=== PATIENT | female | born 1980 | race Native Hawaiian/Other Pacific Islander ===

== ENCOUNTER 2018-10-13 21:04 | Inpatient (IN) | payer OTHER ==
[~2018-10-13] VITALS: Ht 152.4 cm; Wt 70.7 kg
[2018-10-13] MEDS ORDERED: NO HOME MEDS (21:17)
[2018-10-13] MEDS ORDERED: nitroGLYCERIN-Tridil 50MG/D5W 250 ML IV PRN (22:05)
[2018-10-13] MEDS ORDERED: ondansetron/PF 4mg/2ml inj IV ONE (22:10)
[2018-10-13] MEDS: fentaNYL/PF 50MCG/1 ML 2ML syringe IV PRN ×2 (22:13→23:11)
[2018-10-13 22:25] LABS: BASOPHILS # (AUTO) 0.1 X10'3 (0-0.2); BASOPHILS % (AUTO) 0.6 % (0-1); EOSINOPHILS # (AUTO) 0.1 X10'3 (0-0.9); EOSINOPHILS % (AUTO) 0.5 % (0-6); HEMATOCRIT 37.2 % (35.0-45.0); HEMOGLOBIN 11.6 g/dl (12.0-16.0); LYMPHOCYTES # (AUTO) 1.9 X10'3 (1.1-4.8); LYMPHOCYTES % (AUTO) 11.6 % (21-51); MEAN CORPUSCULAR HEMOGLOBIN 20.5 PG (27.0-31.0); MEAN CORPUSCULAR HGB CONC 31.1 g/dL (33.0-36.5); MEAN CORPUSCULAR VOLUME 65.9 FL (78-98); MEAN PLATELET VOLUME 8.2 FL (7.4-10.4); MONOCYTES % (AUTO) 6.2 % (2-12); NEUTROPHILS # (AUTO) 13.5 X10'3 (1.8-7.7); NEUTROPHILS % (AUTO) 81.1 % (42-75); PLATELET COUNT 329 X10'3 (140-440); RED BLOOD COUNT 5.66 X10'6 (4.20-5.60); RED CELL DISTRIBUTION WIDTH 23.7 % (11.5-14.5); WHITE BLOOD COUNT 16.7 X10'3 (4.5-11.0)
[2018-10-13 22:36] LABS: ALANINE AMINOTRANSFERASE 22 U/L (12-78); ALBUMIN 3.6 G/DL (3.4-5.0); ALBUMIN/GLOBULIN RATIO 0.8 (1.1-1.5); ALKALINE PHOSPHATASE 130 IU/L (46-116); ANION GAP 9 (8-16); ASPARTATE AMINO TRANSFERASE 17 U/L (10-37); BILIRUBIN,TOTAL 0.5 MG/DL (0.1-1.0); BLOOD UREA NITROGEN 20 MG/DL (7-18); CALCIUM 8.3 MG/DL (8.5-10.1); CHLORIDE 103 MMOL/L (99-107); CREATININE 0.91 MG/DL (0.40-0.90); GLUCOSE 142 MG/DL (70-104); POTASSIUM 3.4 MMOL/L (3.5-5.1); SODIUM 139 MMOL/L (135-145); eGFR 69 ML/MIN
[2018-10-13 22:41] LABS: PARTIAL THROMBOPLASTIN TIME 25 SECONDS (22-32)
[2018-10-13 23:14] LABS: ANISOCYTOSIS 3+; MICROCYTOSIS 2+; PLATELET ESTIMATE NORMAL
[2018-10-14] VITALS (21 sets, daily range): BP systolic 131–210; BP diastolic 66–105
--- NOTE | 2018-10-14 | NUR ---
ASKED DR ESPINAL FOR ATIVAN, HE DENIED.
[2018-10-14] MEDS: fentaNYL/PF 50MCG/1 ML 2ML syringe IV PRN ×4 (00:07→03:10)
--- NOTE | 2018-10-14 00:10 | NUR ---
PT VERY UNCOMFORTABLE. STATES HER STOMACH AND BACK AND HER CHEST HURT. DR ESPINAL HAS BEEN NOTIFIED.
--- NOTE | 2018-10-14 00:11 | NUR ---
ASKED DR ESPINAL FOR AN ARTERIAL LINE, SET UP IN THE ROOM.
--- NOTE | 2018-10-14 00:13 | NUR ---
DR ESPINAL NOTIFIED OF THE BLOOD PRESSURE AND THE PAIN THE PATIENT HAS IN HER BACK, ABDOMEN AND CHEST. HE SAID HE WILL BE IN IN A BIT, HE SAYS HER BP IS BETTER. HE DENIES ANY OTHER MEDICATION ADMINISTRATION AT THIS TIME.
--- NOTE | 2018-10-14 00:15 | NUR ---
PT FINALLY ASLEEP
[2018-10-14] MEDS ORDERED: labetalol inj. 200 MG in normal saline 250ml IV soln 210 ML IV SCH (02:20)
--- NOTE | 2018-10-14 02:22 | NUR ---
DARIEL HURST AT BEDSIDE, LOOKED AT NITRO DRIP DARIEL STATED " NEVER WORKS FOR B/P." DARIEL VERBALIZED HE WILL PUT ORDERS IN FOR B/P MEDICINE.
[2018-10-14] MEDS: K, MAG and/or Phos replacement - Verify level? MC SCH ×2 (02:25→07:12)
[2018-10-14] MEDS ORDERED: potassium Cl 40MEQ/NS 500ml 500 ML IV PRN ×2 (02:25)
[2018-10-14] MEDS ORDERED: potassium Cl 20 mEq SR tablet PO PRN (02:25)
[2018-10-14] MEDS ORDERED: ondansetron/PF 4mg/2ml inj IV PRN (02:25)
[2018-10-14] MEDS ORDERED: magnesium hydroxide 30ml (MOM) UD suspension PO PRN (02:25)
[2018-10-14] MEDS: normal saline 1000ml 1,000 ML IV SCH ×2 (02:30→22:23)
[2018-10-14] MEDS: LABETALOL IV SCH ×11 (02:45→20:40)
[2018-10-14] MEDS: NORMAL SALINE IV SCH ×11 (02:45→20:40)
--- NOTE | 2018-10-14 03:30 | NUR ---
I have received report and assumed care of pt, pt transferred [facility] emergency department via [facility] to room 2011, pt is moaning and thrashing in bed, assessment complete, pt placed on labetalol drip per md orders, protocol followed.
[2018-10-14] MEDS: morphine 4 MG/ML inj SYRINge IV PRN ×3 (03:37→22:09)
[2018-10-14] MEDS ORDERED: nitroGLYCERIN 1gm ointment UD TP ONE (04:00)
[2018-10-14] MEDS: morphine 2 MG/ML inj. syringe IV PRN ×2 (05:03→09:03)
--- NOTE | 2018-10-14 05:29 | NUR ---
0430 spoke to Grace davis N.PEdna regarding blood pressure parameters and IV fluid. new orders received.
--- NOTE | 2018-10-14 06:12 | NUR ---
report given to rec rn plan of care reviewed
[2018-10-14] MEDS: amLODIPine 5mg tablet PO SCH (07:19)
[2018-10-14] MEDS: metoprolol tartrate 50mg tablet PO SCH ×2 (07:19→20:40)
[2018-10-14] MEDS: losartan 50mg tablet PO SCH (07:19)
[2018-10-14] MEDS: pantoprazole 40mg Tablet.DR PO SCH (07:19)
[2018-10-14 07:59] LABS: BASOPHILS # (AUTO) 0.1 X10'3 (0-0.2); BASOPHILS % (AUTO) 0.6 % (0-1); EOSINOPHILS % (AUTO) 0 % (0-6); HEMATOCRIT 31.6 % (35.0-45.0); HEMOGLOBIN 9.7 g/dl (12.0-16.0); LYMPHOCYTES # (AUTO) 1.2 X10'3 (1.1-4.8); LYMPHOCYTES % (AUTO) 7.3 % (21-51); MEAN CORPUSCULAR HGB CONC 30.7 g/dL (33.0-36.5); MEAN CORPUSCULAR VOLUME 65.2 FL (78-98); MEAN PLATELET VOLUME 8.3 FL (7.4-10.4); MONOCYTES # (AUTO) 1.2 X10'3 (0-0.9); MONOCYTES % (AUTO) 7.4 % (2-12); NEUTROPHILS # (AUTO) 14.1 X10'3 (1.8-7.7); NEUTROPHILS % (AUTO) 84.7 % (42-75); PLATELET COUNT 270 X10'3 (140-440); RED BLOOD COUNT 4.85 X10'6 (4.20-5.60); RED CELL DISTRIBUTION WIDTH 23.2 % (11.5-14.5); WHITE BLOOD COUNT 16.6 X10'3 (4.5-11.0)
[2018-10-14 08:11] LABS: ALANINE AMINOTRANSFERASE 17 U/L (12-78); ALBUMIN/GLOBULIN RATIO 0.8 (1.1-1.5); ALKALINE PHOSPHATASE 108 IU/L (46-116); ANION GAP 11 (8-16); ASPARTATE AMINO TRANSFERASE 13 U/L (10-37); BILIRUBIN,TOTAL 0.8 MG/DL (0.1-1.0); BLOOD UREA NITROGEN 19 MG/DL (7-18); BUN/CREATININE RATIO 21.8 (6.6-38.0); CALCIUM 8.5 MG/DL (8.5-10.1); CHLORIDE 103 MMOL/L (99-107); CREATININE 0.87 MG/DL (0.40-0.90); GLUCOSE 142 MG/DL (70-104); MAGNESIUM 1.6 MG/DL (1.5-2.4); PHOSPHORUS 3.4 MG/DL (2.3-4.5); POTASSIUM 3.4 MMOL/L (3.5-5.1); SODIUM 138 MMOL/L (135-145); TOTAL CARBON DIOXIDE 23.6 MMOL/L (24-32); eGFR 73 ML/MIN
[2018-10-14 10:15] LABS: PLATELET ESTIMATE NORMAL
[2018-10-14 10:16] LABS: ANISOCYTOSIS 3+; HYPOCHROMASIA 2+; MICROCYTOSIS 2+
[2018-10-14] MEDS: HYDROcodone/acetaminophen 10/325mg tab PO PRN ×2 (11:16→19:08)
--- NOTE | 2018-10-14 18:37 | NUR ---
Problems reprioritized. Patient report given, questions answered & plan of care reviewed with Mac RN.
[2018-10-14] MEDS: potassium Cl 20 mEq SR tablet PO PRN (20:40)
[2018-10-15] VITALS (24 sets, daily range): BP systolic 107–184; BP diastolic 53–104
[2018-10-15] MEDS: NORMAL SALINE IV SCH ×13 (00:25→16:18)
[2018-10-15] MEDS: LABETALOL IV SCH ×13 (00:25→16:18)
[2018-10-15] MEDS: HYDROcodone/acetaminophen 10/325mg tab PO PRN ×3 (00:28→16:30)
[2018-10-15] MEDS: morphine 4 MG/ML inj SYRINge IV PRN ×3 (02:46→18:50)
[2018-10-15 04:37] LABS: BASOPHILS % (AUTO) 0.3 % (0-1); EOSINOPHILS # (AUTO) 0.1 X10'3 (0-0.9); EOSINOPHILS % (AUTO) 0.4 % (0-6); HEMATOCRIT 28.5 % (35.0-45.0); HEMOGLOBIN 8.8 g/dl (12.0-16.0); LYMPHOCYTES # (AUTO) 1.1 X10'3 (1.1-4.8); LYMPHOCYTES % (AUTO) 8.3 % (21-51); MEAN CORPUSCULAR HEMOGLOBIN 20.4 PG (27.0-31.0); MEAN CORPUSCULAR HGB CONC 30.9 g/dL (33.0-36.5); MEAN CORPUSCULAR VOLUME 66.1 FL (78-98); MEAN PLATELET VOLUME 8.3 FL (7.4-10.4); MONOCYTES % (AUTO) 7.6 % (2-12); NEUTROPHILS # (AUTO) 10.9 X10'3 (1.8-7.7); NEUTROPHILS % (AUTO) 83.4 % (42-75); PLATELET COUNT 250 X10'3 (140-440); WHITE BLOOD COUNT 13.1 X10'3 (4.5-11.0)
[2018-10-15 04:52] LABS: ALANINE AMINOTRANSFERASE 18 U/L (12-78); ALBUMIN 2.7 G/DL (3.4-5.0); ALBUMIN/GLOBULIN RATIO 0.7 (1.1-1.5); ALKALINE PHOSPHATASE 92 IU/L (46-116); ANION GAP 8 (8-16); ASPARTATE AMINO TRANSFERASE 15 U/L (10-37); BILIRUBIN,TOTAL 0.9 MG/DL (0.1-1.0); BLOOD UREA NITROGEN 8 MG/DL (7-18); BUN/CREATININE RATIO 14.3 (6.6-38.0); CALCIUM 8.6 MG/DL (8.5-10.1); CHLORIDE 104 MMOL/L (99-107); CREATININE 0.56 MG/DL (0.40-0.90); GLUCOSE 140 MG/DL (70-104); MAGNESIUM 1.7 MG/DL (1.5-2.4); PHOSPHORUS 1.9 MG/DL (2.3-4.5); POTASSIUM 3.3 MMOL/L (3.5-5.1); SODIUM 137 MMOL/L (135-145); TOTAL CARBON DIOXIDE 25.5 MMOL/L (24-32); TOTAL PROTEIN 6.6 G/DL (6.4-8.2); eGFR > 90 ML/MIN
--- NOTE | 2018-10-15 05:00 | NUR ---
RN Note -Pt tolerated BiPAP for 30 to 40 minutes at a time but was too anxious to keep it on much longer. Pt expressed that he is afraid that he will suffocate if he falls asleep with BiPAP on. Educated pt many times and tried to calm his fears. Addendum: 10/15/18 at 0649 by Naheed Espinosa RN ERROR -WRONG PATIENT
[2018-10-15] MEDS: amLODIPine 5mg tablet PO SCH (07:52)
[2018-10-15] MEDS: potassium Cl 20 mEq SR tablet PO PRN ×3 (07:52→16:30)
[2018-10-15] MEDS: losartan 50mg tablet PO SCH (07:52)
[2018-10-15] MEDS: pantoprazole 40mg Tablet.DR PO SCH (07:53)
[2018-10-15] MEDS: metoprolol tartrate 50mg tablet PO SCH ×2 (07:53→20:30)
[2018-10-15] MEDS: K, MAG and/or Phos replacement - Verify level? MC SCH (07:53)
[2018-10-15] MEDS ORDERED: losartan 50mg tablet PO STA (08:39)
[2018-10-15] MEDS ORDERED: amLODIPine 5mg tablet PO ONE (08:40)
[2018-10-15] MEDS ORDERED: metoprolol tartrate 50mg tablet PO ONE (08:40)
[2018-10-15] MEDS: morphine 2 MG/ML inj. syringe IV PRN (08:56)
[2018-10-15] MEDS ORDERED: cloNIDine 0.1 mg tablet PO ONE (11:15)
[2018-10-15] MEDS ORDERED: ondansetron/PF 4mg/2ml inj IV PRN (11:15)
[2018-10-15] MEDS ORDERED: ondansetron/PF 4mg/2ml inj IV ONE (11:15)
[2018-10-15] MEDS: cloNIDine 0.1 mg tablet PO SCH ×2 (13:00→20:30)
[2018-10-15] MEDS: acetaminophen 325mg tablet PO PRN (16:30)
--- NOTE | 2018-10-15 18:00 | NUR ---
Patient in room CICU 2011. I have received report from JENNIFER Barney and had the opportunity to ask questions and assume patient care.
[2018-10-15] MEDS: normal saline 1000ml 1,000 ML IV SCH (18:23)
--- NOTE | 2018-10-15 18:29 | NUR ---
Problems reprioritized. Patient report given, questions answered & plan of care reviewed with Kim RODRIGUEZ.
[2018-10-16] VITALS (19 sets, daily range): BP systolic 141–182; BP diastolic 72–95
[2018-10-16] MEDS: morphine 4 MG/ML inj SYRINge IV PRN ×3 (00:14→11:23)
[2018-10-16] MEDS: HYDROcodone/acetaminophen 10/325mg tab PO PRN ×3 (01:54→20:29)
--- NOTE | 2018-10-16 05:30 | NUR ---
Patient had an 18G PIV to the right AC. This IV was found to have infiltrated. The catheter was intact when removed. I started a new 18G PIV to the right hand.
--- NOTE | 2018-10-16 06:00 | NUR ---
Problems reprioritized. Patient report given, questions answered & plan of care reviewed with JENNIFER Schwartz.
--- NOTE | 2018-10-16 06:00 | NUR ---
During this shift the patient was on a Labetalol drip running at 0.5 mcg/kg/min. At approx 1930 the patient's SBP came down to 106 and the drip was stopped. The patient has been started on several po hypertensive medications (see eMar). The patient's BP remained stable but did increase as the shift went on up to 170s Systolic by this morning. I notified ALEJANDRO Anthony. Instructed to begin morning med pass because this patient has ordered more po hypertinsive medications. I passed this information on to JENNIFER Schwartz daysutft nurse.
--- NOTE | 2018-10-16 06:20 | NUR ---
Patient in room CICU 2011. I have received report from Kim RODRIGUEZ and had the opportunity to ask questions and assume patient care.
[2018-10-16 06:51] LABS: BASOPHILS # (AUTO) 0.2 X10'3 (0-0.2); BASOPHILS % (AUTO) 1.4 % (0-1); EOSINOPHILS # (AUTO) 0.2 X10'3 (0-0.9); EOSINOPHILS % (AUTO) 1.2 % (0-6); HEMATOCRIT 29.4 % (35.0-45.0); LYMPHOCYTES # (AUTO) 1.6 X10'3 (1.1-4.8); MEAN CORPUSCULAR HEMOGLOBIN 20.5 PG (27.0-31.0); MEAN CORPUSCULAR HGB CONC 30.7 g/dL (33.0-36.5); MEAN CORPUSCULAR VOLUME 66.8 FL (78-98); MEAN PLATELET VOLUME 8.6 FL (7.4-10.4); MONOCYTES # (AUTO) 1.4 X10'3 (0-0.9); MONOCYTES % (AUTO) 9.8 % (2-12); NEUTROPHILS # (AUTO) 11.2 X10'3 (1.8-7.7); NEUTROPHILS % (AUTO) 76.6 % (42-75); PLATELET COUNT 279 X10'3 (140-440); RED CELL DISTRIBUTION WIDTH 23.7 % (11.5-14.5); WHITE BLOOD COUNT 14.6 X10'3 (4.5-11.0)
[2018-10-16] MEDS: NORMAL SALINE IV SCH (06:51)
[2018-10-16] MEDS: LABETALOL IV SCH (06:51)
[2018-10-16] MEDS: losartan 50mg tablet PO SCH (07:03)
[2018-10-16] MEDS: amLODIPine 5mg tablet PO SCH (07:03)
[2018-10-16] MEDS: cloNIDine 0.1 mg tablet PO SCH ×3 (07:03→20:25)
[2018-10-16] MEDS: metoprolol tartrate 50mg tablet PO SCH ×2 (07:03→20:25)
[2018-10-16] MEDS: K, MAG and/or Phos replacement - Verify level? MC SCH (07:04)
[2018-10-16] MEDS: pantoprazole 40mg Tablet.DR PO SCH (07:04)
--- NOTE | 2018-10-16 07:15 | NUR ---
Called Dr. Bishop re: patient yelling out in pain, received orders for CT abd/pelvis with po/iv contrast and 1 x Dilaudid 1 mg.
[2018-10-16 07:16] LABS: ALANINE AMINOTRANSFERASE 15 U/L (12-78); ALBUMIN 2.6 G/DL (3.4-5.0); ALBUMIN/GLOBULIN RATIO 0.6 (1.1-1.5); ALKALINE PHOSPHATASE 90 IU/L (46-116); ANION GAP 8 (8-16); ASPARTATE AMINO TRANSFERASE 13 U/L (10-37); BILIRUBIN,TOTAL 0.9 MG/DL (0.1-1.0); BLOOD UREA NITROGEN 9 MG/DL (7-18); BUN/CREATININE RATIO 12.2 (6.6-38.0); CALCIUM 8.9 MG/DL (8.5-10.1); CHLORIDE 106 MMOL/L (99-107); CREATININE 0.74 MG/DL (0.40-0.90); GLUCOSE 128 MG/DL (70-104); MAGNESIUM 1.9 MG/DL (1.5-2.4); PHOSPHORUS 1.9 MG/DL (2.3-4.5); POTASSIUM 3.6 MMOL/L (3.5-5.1); SODIUM 139 MMOL/L (135-145); TOTAL CARBON DIOXIDE 24.7 MMOL/L (24-32); eGFR 88 ML/MIN
[2018-10-16] MEDS ORDERED: HYDROmorphone 1 mg/ml syringe IV STA (07:19)
--- NOTE | 2018-10-16 08:14 | NUR ---
Patient resting well after IV Dilaudid given 1 mg IV. No s/sx of pain noted. Explain that she will go for CT abd/pelvis scan. Verbalized understanding. Will cont. to monitor.
[2018-10-16] MEDS: diatr meglu/diatrizoate 30ml oral sol.-(3 dose) bottle PO SCH ×3 (09:54→13:29)
--- NOTE | 2018-10-16 10:29 | NUR ---
Patient resting well with eyes closed, at bedside. No pain noted, no facial grimacing noted. Tolerated 10 ml Gastrograffin well, will administer another dose around 1100.
[2018-10-16] MEDS: acetaminophen 325mg tablet PO PRN (12:34)
--- NOTE | 2018-10-16 13:22 | NUR ---
Patient waiting to go down to CT scan for abd/pelvis with iv/po contrast. CT just arrived.
[2018-10-16] MEDS ORDERED: iohexol 300mg/ml 100ml inj. ONE (13:40)
--- NOTE | 2018-10-16 14:10 | NUR ---
Received call from Radiologist to give results, made Dr. Bishop aware of this.
--- NOTE | 2018-10-16 14:10 | NUR ---
Patient returned back from CT scan without event at this time.
--- NOTE | 2018-10-16 16:35 | NUR ---
Patient in room CICU 2011. I have received report from JENNIFER Schwartz and had the opportunity to ask questions. Awaiting patient transfer to unit.
--- NOTE | 2018-10-16 16:37 | NUR ---
Gave report to Stephanie RODRIGUEZ on Telemetry.
--- NOTE | 2018-10-16 17:05 | NUR ---
Pt arrived to unit at this time in stable condition. Bed is low/locked/SRx2, call light in reach. at bedside.
--- NOTE | 2018-10-16 17:10 | NUR ---
Patient transported to room 3023 B on Tele at this time. Stephanie RODRIGUEZ aware of her arrival
--- NOTE | 2018-10-16 17:42 | NUR ---
In patient room to ask about pain level as it was reported as a 9/10 to BEEF SELECTOR. Pt is asleep on right side, sleeping soundly, RR WNL, even ,unlabored. No signs of distress. Bed is low/locked/SRx2, call light in reach. is not at bedside.
--- NOTE | 2018-10-16 18:30 | NUR ---
Problems reprioritized. Patient report given, questions answered & plan of care reviewed with JENNIFER Persaud.
--- NOTE | 2018-10-16 19:00 | NUR ---
Patient said she is having chest pain 8/. EKG done and read by MD. No new orders. EKG placed in chart.
--- NOTE | 2018-10-16 22:53 | NUR ---
Spoke with Tandem Operator about BP 174/95. No new orders
[2018-10-17 02:00] VITALS: BP 171/85
[2018-10-17] MEDS: HYDROcodone/acetaminophen 10/325mg tab PO PRN ×4 (02:58→23:47)
[2018-10-17 06:00] VITALS: BP 162/85
[2018-10-17 06:15] LABS: BASOPHILS # (AUTO) 0.1 X10'3 (0-0.2); BASOPHILS % (AUTO) 0.8 % (0-1); EOSINOPHILS # (AUTO) 0.2 X10'3 (0-0.9); EOSINOPHILS % (AUTO) 1.5 % (0-6); HEMATOCRIT 28.5 % (35.0-45.0); LYMPHOCYTES # (AUTO) 1.6 X10'3 (1.1-4.8); LYMPHOCYTES % (AUTO) 11.5 % (21-51); MEAN CORPUSCULAR HEMOGLOBIN 20.6 PG (27.0-31.0); MEAN CORPUSCULAR HGB CONC 31.5 g/dL (33.0-36.5); MEAN CORPUSCULAR VOLUME 65.5 FL (78-98); MEAN PLATELET VOLUME 8.5 FL (7.4-10.4); MONOCYTES # (AUTO) 1.2 X10'3 (0-0.9); MONOCYTES % (AUTO) 8.8 % (2-12); NEUTROPHILS # (AUTO) 10.5 X10'3 (1.8-7.7); NEUTROPHILS % (AUTO) 77.4 % (42-75); PLATELET COUNT 319 X10'3 (140-440); RED BLOOD COUNT 4.35 X10'6 (4.20-5.60); WHITE BLOOD COUNT 13.6 X10'3 (4.5-11.0)
[2018-10-17] MEDS: acetaminophen 325mg tablet PO PRN ×2 (06:32→19:49)
--- NOTE | 2018-10-17 06:34 | NUR ---
Problems reprioritized. Patient report given, questions answered & plan of care reviewed with Art RN.
[2018-10-17 07:01] LABS: ALANINE AMINOTRANSFERASE 26 U/L (12-78); ALBUMIN 2.5 G/DL (3.4-5.0); ALBUMIN/GLOBULIN RATIO 0.5 (1.1-1.5); ALKALINE PHOSPHATASE 96 IU/L (46-116); ANION GAP 7 (8-16); ASPARTATE AMINO TRANSFERASE 23 U/L (10-37); BLOOD UREA NITROGEN 8 MG/DL (7-18); CALCIUM 8.9 MG/DL (8.5-10.1); CHLORIDE 104 MMOL/L (99-107); GLUCOSE 135 MG/DL (70-104); MAGNESIUM 1.9 MG/DL (1.5-2.4); PHOSPHORUS 2.8 MG/DL (2.3-4.5); POTASSIUM 3.7 MMOL/L (3.5-5.1); SODIUM 137 MMOL/L (135-145); TOTAL PROTEIN 7.1 G/DL (6.4-8.2); eGFR 80 ML/MIN
[2018-10-17] MEDS: pantoprazole 40mg Tablet.DR PO SCH (07:30)
[2018-10-17] MEDS: K, MAG and/or Phos replacement - Verify level? MC SCH (08:00)
[2018-10-17] MEDS: amLODIPine 5mg tablet PO SCH (08:49)
[2018-10-17] MEDS: cloNIDine 0.1 mg tablet PO SCH ×3 (08:49→21:17)
[2018-10-17] MEDS: losartan 50mg tablet PO SCH (08:50)
[2018-10-17] MEDS: metoprolol tartrate 50mg tablet PO SCH ×2 (08:50→19:52)
[2018-10-17 09:39] LABS: HYPOCHROMASIA 1+; PLATELET ESTIMATE NORMAL; POLYCHROMASIA FEW
[2018-10-17 09:40] LABS: ANISOCYTOSIS 3+; MICROCYTOSIS 2+; SCHISTOCYTES 1+
[2018-10-17 11:11] VITALS: BP 122/72
[2018-10-17 11:47] LABS: % IRON SATURATION 5 % (11-46); IRON 13 UG/DL (49-151); TOTAL IRON BINDING CAPACITY 282 UG/DL (259-388)
--- NOTE | 2018-10-17 14:37 | NUR ---
urine collection hat placed for urine sample. pt will notify us when she has urinated.
[2018-10-17 15:15] VITALS: BP 156/84
--- NOTE | 2018-10-17 18:20 | NUR ---
Patient in room PCU 3023. I have received report from Art RN and had the opportunity to ask questions and assume patient care.
--- NOTE | 2018-10-17 18:38 | NUR ---
Problems reprioritized. Patient report given, questions answered & plan of care reviewed with JENNIFER hauser.
[2018-10-17 19:00] VITALS: BP 135/75
[2018-10-17 23:00] VITALS: BP 172/90
[2018-10-18 03:00] VITALS: BP 171/91
[2018-10-18] MEDS: acetaminophen 325mg tablet PO PRN (04:16)
--- NOTE | 2018-10-18 06:52 | NUR ---
Problems reprioritized. Patient report given, questions answered & plan of care reviewed with Cecil RN.
[2018-10-18 07:00] VITALS: BP 176/84
--- NOTE | 2018-10-18 07:05 | NUR ---
Patient in room PCU 3023. I have received report from JENNIFER BEAVERS and had the opportunity to ask questions and assume patient care.
[2018-10-18 07:18] LABS: BASOPHILS # (AUTO) 0.1 X10'3 (0-0.2); BASOPHILS % (AUTO) 0.8 % (0-1); EOSINOPHILS # (AUTO) 0.3 X10'3 (0-0.9); EOSINOPHILS % (AUTO) 2.1 % (0-6); HEMATOCRIT 31.5 % (35.0-45.0); HEMOGLOBIN 9.7 g/dl (12.0-16.0); LYMPHOCYTES # (AUTO) 1.7 X10'3 (1.1-4.8); LYMPHOCYTES % (AUTO) 13.3 % (21-51); MEAN CORPUSCULAR HEMOGLOBIN 20.1 PG (27.0-31.0); MEAN CORPUSCULAR HGB CONC 30.8 g/dL (33.0-36.5); MEAN CORPUSCULAR VOLUME 65.3 FL (78-98); MEAN PLATELET VOLUME 8.6 FL (7.4-10.4); MONOCYTES % (AUTO) 8.4 % (2-12); NEUTROPHILS # (AUTO) 9.4 X10'3 (1.8-7.7); NEUTROPHILS % (AUTO) 75.4 % (42-75); PLATELET COUNT 381 X10'3 (140-440); RED BLOOD COUNT 4.83 X10'6 (4.20-5.60); RED CELL DISTRIBUTION WIDTH 22.9 % (11.5-14.5); WHITE BLOOD COUNT 12.5 X10'3 (4.5-11.0)
[2018-10-18 07:32] LABS: ALANINE AMINOTRANSFERASE 20 U/L (12-78); ALBUMIN 2.5 G/DL (3.4-5.0); ALBUMIN/GLOBULIN RATIO 0.5 (1.1-1.5); ALKALINE PHOSPHATASE 108 IU/L (46-116); ANION GAP 10 (8-16); ASPARTATE AMINO TRANSFERASE 15 U/L (10-37); BILIRUBIN,TOTAL 0.7 MG/DL (0.1-1.0); BLOOD UREA NITROGEN 10 MG/DL (7-18); BUN/CREATININE RATIO 14.3 (6.6-38.0); CALCIUM 8.8 MG/DL (8.5-10.1); CHLORIDE 102 MMOL/L (99-107); GLUCOSE 139 MG/DL (70-104); MAGNESIUM 1.7 MG/DL (1.5-2.4); PHOSPHORUS 2.7 MG/DL (2.3-4.5); POTASSIUM 3.3 MMOL/L (3.5-5.1); SODIUM 139 MMOL/L (135-145); TOTAL CARBON DIOXIDE 26.6 MMOL/L (24-32); TOTAL PROTEIN 7.6 G/DL (6.4-8.2); eGFR > 90 ML/MIN
[2018-10-18] MEDS: pantoprazole 40mg Tablet.DR PO SCH (07:33)
[2018-10-18] MEDS: cloNIDine 0.1 mg tablet PO SCH ×2 (07:34→13:30)
[2018-10-18] MEDS: losartan 50mg tablet PO SCH (07:34)
[2018-10-18] MEDS: metoprolol tartrate 50mg tablet PO SCH (07:36)
[2018-10-18] MEDS: amLODIPine 5mg tablet PO SCH (07:36)
[2018-10-18] MEDS: HYDROcodone/acetaminophen 10/325mg tab PO PRN (07:37)
[2018-10-18 07:49] LABS: ANISOCYTOSIS 3+; MICROCYTOSIS 2+; PLATELET ESTIMATE NORMAL; POLYCHROMASIA FEW
--- NOTE | 2018-10-18 09:47 | NUR ---
PAGER ID: [phone] MESSAGE: DR. CAMPBELL, [id number] REQUESTED I PAGE , WANTS TO SEE/TALK TO HER MD. BETTE [id number]. TY
[2018-10-18] MEDS: K, MAG and/or Phos replacement - Verify level? MC SCH (09:54)
[2018-10-18] MEDS: potassium Cl 20 mEq SR tablet PO PRN ×2 (09:58→13:58)
--- NOTE | 2018-10-18 10:24 | NUR ---
PAGER ID: [phone] MESSAGE: DR. CAMPBELL, [id number]/HER, PIV IS INFILTRATED/DC'D. PT REFUSING NEW PIV. BETTE [id number]. TY
[2018-10-18 11:00] VITALS: BP 156/92
[2018-10-18] MEDS ORDERED: AMOX-419 PO (12:05)
[2018-10-18] MEDS ORDERED: METO50TA16 PO (12:05)
[2018-10-18] MEDS ORDERED: CLON0.1T20 PO (12:05)
[2018-10-18] MEDS ORDERED: NOR5T PO (12:05)
[2018-10-18] MEDS ORDERED: LOSA50TA64 PO (12:05)
== END 2018-10-18 14:35 | disposition home or self-care (01) | DRG 872 ==
LOC: ER 21:06 → CICU 2S 10-14 02:53 → PCU 3S 10-16 17:00
PROVIDERS: ATTEND Internal Medicine
PROC: BW211ZZ Computerized Tomography (CT Scan) of Abdomen and Pelvis using Low Osmolar Contrast (ICD-10-PCS; principal; 2018-10-16)
DX: A41.9 Sepsis, unspecified organism (principal); I16.1 Hypertensive emergency; Q25.8 Other congenital malformations of other great arteries; F15.10 Other stimulant abuse, uncomplicated; D50.9 Iron deficiency anemia, unspecified; F17.200 Nicotine dependence, unspecified, uncomplicated; I10 Essential (primary) hypertension; I71.2 Thoracic aortic aneurysm, without rupture; Z71.51 Drug abuse counseling and surveillance of drug abuser
CPT/HCPCS: 36415; 71045; 71046; 74177; 80053; 83540; 83550; 83605; 83735; 84100; 84132; 84145; 84484; 85025; 85610; 85730; 87040; 93005; 96365; 96375; 99291; G0378; J1170; J2270; J2405; J3010; J3490; J7030; Q9963; Q9967